=== PATIENT | female | born 1970 | race Caucasian/White ===

== ENCOUNTER 2017-02-03 13:13 | Emergency (ER) | payer BC, OTHER ==
[~2017-02-03] VITALS: Ht 167.6 cm; Wt 165.1 kg
[~2017-02-03 13:13] MED LIST: LISI40TA PO; METH250T
--- NOTE | 2017-02-03 14:24 | ED Abdominal Pain ---
General Chief Complaint: Abdominal/GI Problems Stated Complaint: NAUSEA/BURNING/PAIN IN R SIDE Nursing Triage Note: PT REPORTS THAT AROUND NOON SHE BEGAN HAVING MIDLINE ABD PAIN AND BURNING THAT RADIATED TO HER RUQ. PT ALSO REPORTS NAUSEA, DIAPHORESIS, LIGHTHEADEDNESS. SHE STATES THAT INTERMITTENTLY THE PAIN IS STABBING IN NATURE. SHE DENIES ANY URINARY SYMPTOMS. Sepsis Screen: No Definite Risk Source of Information: Patient Exam Limitations: No Limitations History of Present Illness Time Seen By Provider: 14:24 Initial Comments 46 YO FEMALE PATIENT PRESENTS TO THE ED WITH C/O MID ABDOMINAL PAIN THAT RADIATED FROM HER LEFT MID ABDOMEN TO HER RT MID ABDOMEN/FLANK WHILE TRYING TO MOVE A LARGE AREA RUG. PATIENT REPORTS FEELING "SOMETHING RELEASE AND HAD A SUDDEN BURNING, SHOOTING PAIN RADIATE ACROSS THE ABDOMEN. INITIALLY HAD NAUSEA AND BECAME DIAPHORETIC. STATES SHE BECAME VERY ANXIOUS AND STARTED TO FEEL LIGHTHEADED. NOW HAS INTERMITTENT STABBING PAINS. Location Injury Occurred: HOME Timing/Duration: 1-3 Hours, Intermittent Severity/Quality: Burning, Stabbing Location: Other (LEFT MID ABDOMEN.) Radiation: Other (RT MID ABDOMEN/RT FLANK) Activities at Onset: Other Modifying Factors: Worsens With Movement, Worsens With Palpation Allergies and Home Medications Allergies Coded Allergies: No Known Drug Allergies (Unverified , 10/25/09) Home Medications Lisinopril 40 Mg Tablet, 40 MG PO DAILY, (Reported) Ondansetron 8 Mg Tab.rapdis, 8 MG PO Q6H PRN for NAUSEA, #10 Ref 0 Prescribed by: CONCETTA RUIZ on 02/03/17 1525 Review of Systems Constitutional: No chills, diaphoresis, dizziness, No fever, No malaise EENTM: No Symptoms Reported Respiratory: Denies Cough, Denies Shortness of Air Cardiovascular: Denies Chest Pain, Denies Irregular Heart Rate, Lightheadedness , Denies Palpitations, Denies Syncope Gastrointestinal: See HPI, Denies Abdomen Distended, Abdominal Pain, Denies Blood Streaked Stools, Denies Constipated, Denies Diarrhea, Nausea, Denies Rectal Bleeding, Denies Vomiting Genitourinary: Denies Burning, Denies Discharge, Denies Frequency, Flank Pain ( RT), Denies Hematuria, Denies Pain Musculoskeletal: no symptoms reported Skin: no symptoms reported Psychiatric/Neurological: No Symptoms Reported All Other Systems Reviewed Negative Unless Noted: Yes (Negative excepted noted.) Past Crgixcm-Tvozxu-Ybezbj Hx Patient Social History Alcohol Use: Occasionally Uses Recreational Drug Use: No Smoking Status: Former Smoker 2nd Hand Smoke Exposure: No Recent Foreign Travel: No Contact w/Someone Who Travel: No Recent Infectious Disease Expo: No Recent Hopitalizations: No Surgeries HX Surgeries: Yes (BILAT CARPAL TUNNEL) Surgeries: Section, Gallbladder Respiratory Hx Respiratory Disorders: No Cardiovascular Hx Cardiac Disorders: Yes Neurological Hx Neurological Disorders: No Reproductive System Hx Reproductive Disorders: No Sexually Transmitted Disease: No Genitourinary Hx Genitourinary Disorders: No Gastrointestinal Hx Gastrointestinal Disorders: No Musculoskeletal Hx Musculoskeletal Disorders: No Endocrine Hx Endocrine Disorders: No HEENT HX ENT Disorders: Yes (TMJ) Psychosocial Hx Psychiatric Problems: No Blood Transfusions Hx Blood Disorders: No Reviewed Nursing Assessment Reviewed/Agree w Nursing PMH: Yes Family Medical History Significant Family History: No Pertinent Family Hx Physical Exam Vital Signs VS - Last 72 Hours, by Label 02/03/17 02/03/17 13:55 15:45 Temp 98.9 98.9 Pulse 78 78 Resp 18 18 B/P (MAP) 160/81 Pulse Ox 98 98 O2 Delivery Room Air Capillary Refill : Less Than 3 Seconds General Appearance: WD/WN, no apparent distress, obese Respiratory: chest non-tender, lungs clear, normal breath sounds, no respiratory distress Cardiovascular: normal peripheral pulses, regular rate, rhythm, no murmur Gastrointestinal: normal bowel sounds, soft, no organomegaly, No distended, No guarding, No rebound, tenderness (TTP WITH LIGHT PALPATION ALONG THE RT MIDABDOMEN, LEFT MIDABDOMEN, AND RT FLANK. PAIN IMPROVED WITH DEEP PALPATION.) , No hernia, No mass Extremities: no pedal edema, normal capillary refill Back: normal inspection, no CVA tenderness, no vertebral tenderness Neurologic/Psychiatric: alert, normal mood/affect, oriented x 3 Skin: normal color, warm/dry Progress/Results/Core Measures Results/Orders Lab Results Laboratory Tests Test 02/03/17 14:31 Range/Units White Blood Count 11.6 H 4.3-11.0 10^3/uL Red Blood Count 4.54 4.35-5.85 10^6/uL Hemoglobin 13.0 11.5-16.0 G/DL Hematocrit 39 35-52 % Mean Corpuscular Volume 85 80-99 FL Mean Corpuscular Hemoglobin 29 25-34 PG Mean Corpuscular Hemoglobin Concent 34 32-36 G/DL Red Cell Distribution Width 12.9 10.0-14.5 % Platelet Count 306 130-400 10^3/uL Mean Platelet Volume 9.3 7.4-10.4 FL Neutrophils (%) (Auto) 75 42-75 % Lymphocytes (%) (Auto) 18 12-44 % Monocytes (%) (Auto) 7 0-12 % Eosinophils (%) (Auto) 1 0-10 % Basophils (%) (Auto) 0 0-10 % Neutrophils # (Auto) 8.7 H 1.8-7.8 X 10^3 Lymphocytes # (Auto) 2.1 1.0-4.0 X 10^3 Monocytes # (Auto) 0.8 0.0-1.0 X 10^3 Eosinophils # (Auto) 0.1 0.0-0.3 10^3/uL Basophils # (Auto) 0.0 0.0-0.1 10^3/uL Urine Color YELLOW Urine Clarity CLEAR Urine pH 5 5-9 Urine Specific [place] 1.030 H 1.016-1.022 Urine Protein NEGATIVE NEGATIVE Urine Glucose (UA) NEGATIVE NEGATIVE Urine Ketones NEGATIVE NEGATIVE Urine Nitrite NEGATIVE NEGATIVE Urine Bilirubin NEGATIVE NEGATIVE Urine Urobilinogen NORMAL NORMAL MG/DL Urine Leukocyte Esterase NEGATIVE NEGATIVE Urine RBC (Auto) NEGATIVE NEGATIVE Urine RBC RARE /HPF Urine WBC 0-2 /HPF Urine Squamous Epithelial Cells 10-25 H /HPF Urine Crystals NONE /LPF Urine Bacteria FEW H /HPF Urine Casts NONE /LPF Urine Mucus SMALL H /LPF Urine Culture Indicated NO Sodium Level 136 135-145 MMOL/L Potassium Level 4.2 3.6-5.0 MMOL/L Chloride Level 101 98-107 MMOL/L Carbon Dioxide Level 26 21-32 MMOL/L Anion Gap 9 5-14 MMOL/L Blood Urea Nitrogen 11 7-18 MG/DL Creatinine 0.76 0.60-1.30 MG/DL Estimat Glomerular Filtration Rate > 60 BUN/Creatinine Ratio 14 Glucose Level 92 70-105 MG/DL Calcium Level 9.4 8.5-10.1 MG/DL Total Bilirubin 0.4 0.1-1.0 MG/DL Aspartate Amino Transf (AST/SGOT) 17 5-34 U/L Alanine Aminotransferase (ALT/SGPT) 21 0-55 U/L Alkaline Phosphatase 90 40-136 U/L Total Protein 7.5 6.4-8.2 G/DL Albumin 3.8 3.2-4.5 G/DL Lipase 20 8-78 U/L Urine Opiates Screen NEGATIVE NEGATIVE Urine Oxycodone Screen NEGATIVE NEGATIVE Urine Methadone Screen NEGATIVE NEGATIVE Urine Propoxyphene Screen NEGATIVE NEGATIVE Urine Barbiturates Screen NEGATIVE NEGATIVE Ur Tricyclic Antidepressants Screen NEGATIVE NEGATIVE Urine Phencyclidine Screen NEGATIVE NEGATIVE Urine Amphetamines Screen NEGATIVE NEGATIVE Urine Methamphetamines Screen NEGATIVE NEGATIVE Urine Benzodiazepines Screen NEGATIVE NEGATIVE Urine Cocaine Screen NEGATIVE NEGATIVE Urine Cannabinoids Screen NEGATIVE NEGATIVE My Orders Orders - CONCETTA RUIZ Ua Culture If Indicated (02/03/17 14:04) Cbc With Automated Diff (02/03/17 14:22) Comprehensive Metabolic Panel (02/03/17 14:22) Drug Screen Stat (Urine) (02/03/17 14:22) Lipase (02/03/17 14:22) Saline Lock/Iv-Start (02/03/17 14:22) Ns Iv 1000 Ml (Sodium Chloride 0.9%) (02/03/17 14:50) Vital Signs/I&O Vital Sign - Last 12Hours 02/03/17 02/03/17 13:55 15:45 Temp 98.9 98.9 Pulse 78 78 Resp 18 18 B/P (MAP) 160/81 Pulse Ox 98 98 O2 Delivery Room Air Blood Pressure Mean: 107 Departure Communication Progress Notes LABORATORY FINDINGS WERE DISCUSSED WITH THE PATIENT. PATIENT REPORTS SYMPTOMS ARE COMPLETELY RESOLVED. PLAN FOR DSCH TO HOME. Impression Impression: Primary Impression: Abdominal wall pain Additional Impression: Nausea alone Disposition: 01 HOME, SELF-CARE Condition: Improved Departure-Patient Inst. Decision time for Depature: 15:24 Referrals: NO,LOCAL PHYSICIAN (PCP/Family) Primary Care Physician Patient Instructions: Abdominal Muscle Strain (DC), Acute Abdomen (Belly Pain) , Adult (DC) Add. Discharge Instructions: All discharge instructions reviewed with patient and/or family. Voiced understanding. Medications as instructed. Tylenol extra strength [id number] as directed for pain. Ibuprofen 800 mg by mouth every 8 hours as needed for pain. Ice pack or heating pads as needed for pain. No heavy lifting, pushing, pulling 7 days. Follow-up with the family practitioner for recheck as an outpatient. Call for appointment time tomorrow morning. Return to the emergency department for worsened pain, vomiting, fever, shortness of air, rectal bleeding, black stools, vomiting blood, diarrhea, inability to urinate, or any other concerns. Scripts Ondansetron (Ondansetron Odt) 8 Mg Tab.rapdis 8 MG PO Q6H Y for NAUSEA, #10 TAB 0 Refills Prov: CONCETTA RUIZ 02/03/17 CONCETTA RUIZ Feb 03, 2017 14:24
[2017-02-03 14:41] LABS: BASOPHILS % (AUTO) 0 % (0-10); EOSINOPHILS # (AUTO) 0.1 10^3/uL (0.0-0.3); EOSINOPHILS % (AUTO) 1 % (0-10); LYMPHOCYTES # (AUTO) 2.1 X 10^3 (1.0-4.0); LYMPHOCYTES % (AUTO) 18 % (12-44); MEAN CORPUSCULAR HEMOGLOBIN 29 PG (25-34); MEAN CORPUSCULAR HGB CONC 34 G/DL (32-36); MEAN CORPUSCULAR VOLUME 85 FL (80-99); MEAN PLATELET VOLUME 9.3 FL (7.4-10.4); MONOCYTES # (AUTO) 0.8 X 10^3 (0.0-1.0); MONOCYTES % (AUTO) 7 % (0-12); NEUTROPHILS # (AUTO) 8.7 X 10^3 (1.8-7.8); NEUTROPHILS % (AUTO) 75 % (42-75); PLATELET COUNT 306 10^3/uL (130-400); RED BLOOD COUNT 4.54 10^6/uL (4.35-5.85); RED CELL DISTRIBUTION WIDTH 12.9 % (10.0-14.5); WHITE BLOOD COUNT 11.6 10^3/uL (4.3-11.0)
[2017-02-03 14:44] LABS: BILIRUBIN,URINE NEGATIVE (NEGATIVE); KETONES,URINE NEGATIVE (NEGATIVE); LEUKOCYTE ESTERASE ,URINE NEGATIVE (NEGATIVE); NITRITE,URINE NEGATIVE (NEGATIVE); PH,URINE 5 (5-9); PROTEIN,URINE NEGATIVE (NEGATIVE); UROBILINOGEN,URINE NORMAL (NORMAL)
[2017-02-03] MEDS ORDERED: NS IV 1000 ML 1,000 ML IV ONE (14:50)
[2017-02-03 14:58] LABS: ALANINE AMINOTRANSFERASE 21 U/L (0-55); ALBUMIN 3.8 G/DL (3.2-4.5); ANION GAP 9 MMOL/L (5-14); ASPARTATE AMINO TRANSFERASE 17 U/L (5-34); BILIRUBIN,TOTAL 0.4 MG/DL (0.1-1.0); BLOOD UREA NITROGEN 11 MG/DL (7-18); BUN/CREATININE RATIO 14; CALCIUM 9.4 MG/DL (8.5-10.1); CARBON DIOXIDE 26 MMOL/L (21-32); CHLORIDE 101 MMOL/L (98-107); CREATININE SERUM 0.76 MG/DL (0.60-1.30); GFR ESTIMATED > 60; GLUCOSE 92 MG/DL (70-105); LIPASE 20 U/L (8-78); POTASSIUM 4.2 MMOL/L (3.6-5.0); SODIUM 136 MMOL/L (135-145); TOTAL PROTEIN 7.5 G/DL (6.4-8.2)
[2017-02-03 15:02] LABS: WBC,URINE 0-2 /HPF
[2017-02-03] MEDS ORDERED: ONDA8TAB13 PO (15:25)
[2017-02-03 15:45] VITALS: BP 160/81
--- OUTSIDE RECORDS SUMMARY | 2017-02-26 12:13 | XMS REPORT ---
Author Author LARRY GRECO [facility] eClinicalWorks Address Unknown Phone Unavailable Care Team Providers Care [employer] Biometrics Professor Name Role Phone LARRY GRECO CP Unavailable Allergies, Adverse Reactions, Alerts Substance Reaction Event Type N.K.D.A. Info Not Available Non Drug Allergy Problems Problem Type Condition Code Onset Dates Condition Status Problem Unspecified conjunctivitis 372.30 Active Problem Unspecified fasciitis 729.4 Active Problem Abdominal pain, right lower quadrant 789.03 Active Problem Abdominal pain, other specified site 789.09 Active Problem Dysuria 788.1 Active Problem Lipoma of other skin and subcutaneous tissue 214.1 Active Problem Obesity, unspecified 278.00 Active Problem Pain in joint, lower leg 719.46 Active Problem Hematuria, unspecified 599.70 Active Problem Unspecified symptom associated with female genital organs 625.9 Active Assessment Dental examination Z01.20 Active Problem DTAP TEST V06.1 Active Problem MMR DX V06.4 Active Problem STATE HEP A (ADULT) DX V05.3 Active Problem VARICELLA DX V05.4 Active Problem Need for prophylactic vaccination and inoculation, Influenza V04.81 Active Problem Pain in joint, ankle and foot 719.47 Active Medications Medication Code System Code Instructions Start Date End Date Status Dosage Lisinopril [facility] [address]-00 not defined Naprosyn [facility] [address]-15 500 mg Dec 24, 2011 take 1 tablet (500 mg) by oral route 2 times per day with food Procedures Procedure Coding System Code Date AMALGAM-TWO SURFACES PRIMARY/PERM CPT-4 D2150 Aug 08, 2015 AMALGAM-TWO SURFACES PRIMARY/PERM CPT-4 D2150 Aug 08, 2015 Vital Signs Date/Time: Aug 08, 2015 Blood Pressure Diastolic 88 mmHg Blood Pressure Systolic 133 mmHg Results No Known Results Summary Purpose eClinicalWorks Submission
--- OUTSIDE RECORDS SUMMARY | 2017-02-26 12:13 | XMS REPORT ---
Author Author LINNETTE DOBBS [facility] Address Unknown Care Team Providers Care Flight Controls Engineer Name Role Phone LINNETTE DOBBS Unavailable PROBLEMS Type Condition ICD9-CM Code [id number] Code Onset Dates Condition Status SNOMED Code Problem Unspecified fasciitis 729.4 Active 05968049 Problem Obesity, unspecified 278.00 Active 755055324 Problem Pain in joint, lower leg 719.46 Active 070373330 Problem Encounter for dental examination Z01.20 Active 345010772 Problem Lipoma of other skin and subcutaneous tissue 214.1 Active 814364758 Problem Hematuria, unspecified 599.70 Active 80105055 Problem Unspecified symptom associated with female genital organs 625.9 Active 021613343 Problem Abdominal pain, other specified site 789.09 Active 80432339 Problem Dysuria 788.1 Active 69904265 Problem STATE HEP A (ADULT) DX V05.3 Active 580461600 Problem Need for prophylactic vaccination and inoculation, Influenza V04.81 Active 798430122 Assessment Dental examination Z01.20 25 Jun, 2016 Active 46557128 Problem VARICELLA DX V05.4 Active Problem Pain in joint, ankle and foot 719.47 Active 974744918 Problem DTAP TEST V06.1 Active Problem Unspecified conjunctivitis 372.30 Active 0827059 Problem MMR DX V06.4 Active Problem Abdominal pain, right lower quadrant 789.03 Active 151300555 ALLERGIES No Known Allergies SOCIAL HISTORY No smoking Hx information available PLAN OF CARE VITAL SIGNS MEDICATIONS No Known Medications RESULTS No Results PROCEDURES Procedure Date Ordered Related Diagnosis Body Site Billing Notes on claim Jun 28, 2016 IMMUNIZATIONS No Known Immunizations
--- OUTSIDE RECORDS SUMMARY | 2017-02-26 12:13 | XMS REPORT ---
Author Author SKIP BUSTAMANTE Organization eClinicalWorks Address Unknown Phone Unavailable Care Team Providers Care Php Software Engineer Name Role Phone SKIP BUSTAMANTE CP Unavailable Allergies No Known Allergies Problems Problem Type Condition ICD-9 Code Onset Dates Condition Status Problem Unspecified [...] genital organs 625.9 Active Assessment Dental examination V72.2 Active Problem DTAP TEST V06.1 Active Problem MMR DX V06.4 Active Problem STATE HEP A (ADULT) DX V05.3 Active Problem VARICELLA DX V05.4 Active Problem Need for prophylactic vaccination and inoculation, Influenza V04.81 Active Problem Pain in joint, ankle and foot 719.47 Active Medications No Known Medications Procedures Procedure Coding System Code Date INTRAORL-PERIAPICAL EA ADD FILM CPT-4 D0230 June 02, 2015 INTRAORL-PERIAPICAL EA ADD FILM CPT-4 D0230 June 02, 2015 INTRAORL-PERIAPICAL 1 FILM 83406 CPT-4 D0220 June 02, 2015 Periodontal maint procedures CPT-4 D4910 June 02, 2015 BITEWINGS - FOUR FILMS CPT-4 D0274 June 02, 2015 Results No Known Results Summary Purpose eClinicalWorks Submission
--- OUTSIDE RECORDS SUMMARY | 2017-02-26 12:13 | XMS REPORT ---
Author Author SKIP BUSTAMANTE [employer] Address Unknown Phone Unavailable Care Team Providers Care Reel Operator Name Role Phone SKIP BUSTAMANTE Unavailable Allergies, Adverse Reactions, Alerts Substance Reaction Event Type N.K.D.A. Info Not Available Non Drug Allergy Problems Problem Type Condition Code Onset Dates Condition Status Problem Abdominal pain, right lower quadrant 789.03 Active Problem Pain in joint, lower leg 719.46 Active Problem Unspecified fasciitis 729.4 Active Problem Lipoma of other skin and subcutaneous tissue 214.1 Active Problem Abdominal pain, other specified site 789.09 Active Problem Encounter for dental examination Z01.20 Active Problem Unspecified symptom associated with female genital organs 625.9 Active Problem Obesity, unspecified 278.00 Active Problem Dysuria 788.1 Active Problem Hematuria, unspecified 599.70 Active Assessment Encounter for dental examination Z01.20 Active Problem STATE HEP A (ADULT) DX V05.3 Active Problem MMR DX V06.4 Active Problem VARICELLA DX V05.4 Active Problem Need for prophylactic vaccination and inoculation, Influenza V04.81 Active Problem Pain in joint, ankle and foot 719.47 Active Problem DTAP TEST V06.1 Active Problem Unspecified conjunctivitis 372.30 Active Medications Medication Code System Code Instructions Start Date End Date Status Dosage Lisinopril [facility] [address]-77 20 MG Orally Once a day 1 tablet Aspirin [facility] [address]-63 81 MG Orally Once a day 1 tablet Procedures Procedure Coding System Code Date INTRAORL-PERIAPICAL 1 FILM 31208 CPT-4 D0220 May 22, 2016 INTRAORL-PERIAPICAL EA ADD FILM CPT-4 D0230 May 22, 2016 PERIODIC ORAL EXAMINATION CPT-4 D0120 May 22, 2016 Watch Tooth CPT-4 C0029 May 22, 2016 BITEWINGS - FOUR FILMS CPT-4 D0274 May 22, 2016 INTRAORL-PERIAPICAL EA ADD FILM CPT-4 D0230 May 22, 2016 TOPICAL FLUORIDE VARNISH CPT-4 D1206 May 22, 2016 Periodontal maint procedures CPT-4 D4910 May 22, 2016 Vital Signs Date/Time: May 22, 2016 Blood Pressure Diastolic 78 mmHg Blood Pressure Systolic 130 mmHg Results No Known Results Summary Purpose eClinicalWorks Submission
--- OUTSIDE RECORDS SUMMARY | 2017-02-26 12:13 | XMS REPORT ---
Author Author LARRY GRECO Organization eClinicalWorks Address Unknown Phone Unavailable Care Team Providers Care Irish Moss Gatherer Name Role Phone LARRY GRECO CP Unavailable Allergies No Known Allergies Problems [...] Medications Procedures Procedure Coding System Code Date Billing Notes on claim CPT-4 EC109 March 23, 2015 Results No Known Results Summary Purpose eClinicalWorks Submission
--- OUTSIDE RECORDS SUMMARY | 2017-02-26 12:13 | XMS REPORT ---
Author Author CAPO LOVE Organization eClinicalWorks Address Unknown Phone Unavailable Care Team Providers Care Commercial Illustrator Name Role Phone CAPO LOVE CP Unavailable Allergies No Known Allergies Problems [...] Medications Procedures Procedure Coding System Code Date AMALGAM-ONE SURFACE PRIMARY/PERM CPT-4 D2140 Jun 10, 2015 AMALGAM-TWO SURFACES PRIMARY/PERM CPT-4 D2150 Jun 10, 2015 AMALGAM-ONE SURFACE PRIMARY/PERM CPT-4 D2140 Jun 10, 2015 Results No Known Results Summary Purpose eClinicalWorks Submission
--- OUTSIDE RECORDS SUMMARY | 2017-02-26 12:13 | XMS REPORT | Continuity of Care Document ---
Author Author [facility] Address Unknown Phone Unavailable Allergies Medications Problems Date Dx Coded Attending Type Code Diagnosis Diagnosed By 03/14/2011 789.01 ABDOMINAL PAIN RIGHT UPPER QUADRANT 03/14/2011 789.01 ABDOMINAL PAIN RIGHT UPPER QUADRANT 03/14/2011 789.01 ABDOMINAL PAIN RIGHT UPPER QUADRANT 03/14/2011 MAURA JEWELL DO 789.01 ABDOMINAL PAIN RIGHT UPPER QUADRANT 06/04/2011 787.02 NAUSEA ALONE 06/04/2011 787.02 NAUSEA ALONE 06/04/2011 787.02 NAUSEA ALONE 06/04/2011 MAURA JEWELL DO 787.02 NAUSEA ALONE 09/10/2011 530.81 GERD 09/10/2011 536.8 DYSPEPSIA 09/10/2011 575.8 OTHER SPECIFIED DISORDERS OF GALLBLADDER 09/10/2011 530.81 GERD 09/10/2011 536.8 DYSPEPSIA 09/10/2011 575.8 OTHER SPECIFIED DISORDERS OF GALLBLADDER 09/10/2011 530.81 GERD 09/10/2011 536.8 DYSPEPSIA 09/10/2011 575.8 OTHER SPECIFIED DISORDERS OF GALLBLADDER 09/10/2011 MAURA JEWELL DO 530.81 GERD 09/10/2011 MAURA JEWELL DO 536.8 DYSPEPSIA 09/10/2011 MAURA JEWELL DO 575.8 OTHER SPECIFIED DISORDERS OF GALLBLADDER 10/15/2011 V45.89 OTHER POSTSURGICAL STATUS 10/15/2011 V45.89 OTHER POSTSURGICAL STATUS 10/15/2011 V45.89 OTHER POSTSURGICAL STATUS 10/15/2011 MAURA JEWELL DO V45.89 OTHER POSTSURGICAL STATUS 12/24/2011 278.00 OBESITY 12/24/2011 719.46 JOINT PAIN, LOCALIZED IN THE KNEE 12/24/2011 278.00 OBESITY 12/24/2011 719.46 JOINT PAIN, LOCALIZED IN THE KNEE 12/24/2011 278.00 OBESITY 12/24/2011 719.46 JOINT PAIN, LOCALIZED IN THE KNEE 12/24/2011 MAURA JEWELL DO 278.00 OBESITY 12/24/2011 MAURA JEWELL DO 719.46 JOINT PAIN, LOCALIZED IN THE KNEE 03/05/2012 599.70 HEMATURIA 03/05/2012 625.9 PELVIC PAIN 03/05/2012 788.1 DYSURIA 03/05/2012 599.70 HEMATURIA 03/05/2012 625.9 PELVIC PAIN 03/05/2012 788.1 DYSURIA 03/05/2012 599.70 HEMATURIA 03/05/2012 625.9 PELVIC PAIN 03/05/2012 788.1 DYSURIA 03/05/2012 MAURA JEWELL DO 599.70 HEMATURIA 03/05/2012 MAURA JEWELL DO 625.9 PELVIC PAIN 03/05/2012 MAURA JEWELL DO 788.1 DYSURIA 03/26/2012 729.4 PLANTAR FASCIITIS 03/26/2012 789.03 ABDOMINAL PAIN RIGHT LOWER QUADRANT 03/26/2012 729.4 PLANTAR FASCIITIS 03/26/2012 789.03 ABDOMINAL PAIN RIGHT LOWER QUADRANT 03/26/2012 729.4 PLANTAR FASCIITIS 03/26/2012 789.03 ABDOMINAL PAIN RIGHT LOWER QUADRANT 03/26/2012 MAURA JEWELL DO 729.4 PLANTAR FASCIITIS 03/26/2012 MAURA JEWELL DO 789.03 ABDOMINAL PAIN RIGHT LOWER QUADRANT 05/05/2012 214.1 LIPOMA OF OTHER SKIN AND SUBCUTANEOUS TISSUE 05/05/2012 789.09 ABDOMINAL PAIN OTHER SPECIFIED SITE 05/05/2012 214.1 LIPOMA OF OTHER SKIN AND SUBCUTANEOUS TISSUE 05/05/2012 789.09 ABDOMINAL PAIN OTHER SPECIFIED SITE 05/05/2012 214.1 LIPOMA OF OTHER SKIN AND SUBCUTANEOUS TISSUE 05/05/2012 789.09 ABDOMINAL PAIN OTHER SPECIFIED SITE 05/05/2012 MAURA JEWELL DO 214.1 LIPOMA OF OTHER SKIN AND SUBCUTANEOUS TISSUE 05/05/2012 MAURA JEWELL DO 789.09 ABDOMINAL PAIN OTHER SPECIFIED SITE 03/02/2013 719.47 PAIN IN JOINT INVOLVING ANKLE AND FOOT 03/02/2013 719.47 PAIN IN JOINT INVOLVING ANKLE AND FOOT 03/02/2013 719.47 PAIN IN JOINT INVOLVING ANKLE AND FOOT 03/02/2013 MAURA JEWELL DO 719.47 PAIN IN JOINT INVOLVING ANKLE AND FOOT 04/29/2013 372.30 CONJUNCTIVITIS UNSPECIFIED 04/29/2013 372.30 CONJUNCTIVITIS UNSPECIFIED 04/29/2013 MAURA JEWELL DO 372.30 CONJUNCTIVITIS UNSPECIFIED 12/02/2013 MAURA JEWELL DO V04.81 FLU SHOT 12/02/2013 MAURA JEWELL DO V05.3 HEP B (ADULT) DX 12/02/2013 MAURA JEWELL DO V05.4 VARICELLA DX 12/02/2013 MAURA JEWELL DO V06.1 TDAP DX 12/02/2013 MAURA JEWELL DO V06.4 MMR DX Procedures Code Description Performed By Performed On PODIATRY JASON ALDRIDGE 03/02/2013 Results Encounters ACCT No. Visit Date/Time Discharge Status Pt. Type Provider Facility Loc./Unit Complaint [id number] 12/02/2013 15:12:00 12/02/2013 23: 59:59 CLS Outpatient MAURA JEWELL DO [id number] 06/26/2013 08:01:00 Document Registration [id number] 04/29/2013 12:47:00 Document Registration [id number] 03/02/2013 16:01:00 Document Registration
== END 2017-02-03 15:45 | disposition home or self-care (01) ==
LOC: EDUNIT# 13:13 → ER 13:14
DX: S39.001A Unspecified injury of muscle, fascia and tendon of abdomen, initial encounter (principal); R11.0 Nausea; X50.9XXA Other and unspecified overexertion or strenuous movements or postures, initial encounter; Y92.009 Unspecified place in unspecified non-institutional (private) residence as the place of occurrence of the external cause; Y99.8 Other external cause status
CPT/HCPCS: 36415; 80053; 80306; 81000; 83690; 85025

== ENCOUNTER → 2017-07-22 | Outpatient (CLI) | payer BC ==
[~2017-07-22] MED LIST changes: +ONDA8TAB13 PO
--- NOTE | 2017-07-22 12:15 | Diagnostic Imaging Report ---
EXAMINATION: Three views of the left foot. INDICATION: Pain in the fourth toe and the metatarsal region after injury. FINDINGS: There is a prominent calcaneal spur seen. No fracture or dislocation is noted. No radiopaque foreign body. IMPRESSION: Prominent calcaneal spur. Dictated by: Dictated on workstation # [id number]
== END ==
LOC: RAD 11:01
PROVIDERS: ATTEND Nurse Practitioner Family
DX: M77.32 Calcaneal spur, left foot (principal)
CPT/HCPCS: 73630

== ENCOUNTER → 2022-03-12 | Outpatient (CLI) | payer BC | LOC: LAB 10:48 | PROVIDERS: ATTEND Orthopaedic Surgery Orthopaedic Surgery of the Spine | DX: M54.6 Pain in thoracic spine (principal); G89.29 Other chronic pain | CPT/HCPCS: 36415; 86038; 86039; 86141; 86431; 86618; 86666; 86668; 86757; 86812 ==

== ENCOUNTER → 2022-03-27 | Outpatient (CLI) | payer BC | LOC: RAD 08:45 | PROVIDERS: ATTEND Orthopaedic Surgery Orthopaedic Surgery of the Spine | DX: M54.12 Radiculopathy, cervical region (principal); Z53.9 Procedure and treatment not carried out, unspecified reason ==

== ENCOUNTER → 2022-05-04 | Outpatient (CLI) | payer BC ==
--- NOTE | 2022-05-04 16:24 | Diagnostic Imaging Report ---
INDICATION: Bilateral hand pain TECHNIQUE: Three views of the bilateral hand. CORRELATION STUDY: None FINDINGS: There is normal alignment and appearance of the osseous structures of the hand. The joint spaces are fairly well maintained. No periarticular erosive changes or osteophyte formation. There is perhaps very mild degenerative changes at the first carpal metacarpal articulation left greater than right. There is no acute fracture. Soft tissues are unremarkable. IMPRESSION: 1. Unremarkable examination bilateral hands. Dictated by: Dictated on workstation # [id number]
== END ==
LOC: RAD 15:35
PROVIDERS: ATTEND Family Medicine
DX: M79.642 Pain in left hand (principal); M79.641 Pain in right hand

== ENCOUNTER 2022-07-04 05:45 | Outpatient (CLI) | payer BC ==
[~2022-07-04] VITALS: Ht 167.6 cm; Wt 135.2 kg
[2022-07-05] MEDS ORDERED: BACL10TA PO (15:40)
[2022-07-05] MEDS ORDERED: LISI20TA26 PO (15:40)
[2022-07-05] MEDS ORDERED: TRM50T PO (15:40)
== END 2022-07-05 15:44 | disposition home or self-care (01) ==
LOC: PREOP 05:45
PROVIDERS: ATTEND Surgery
DX: Z01.818 Encounter for other preprocedural examination (principal)

== ENCOUNTER 2022-07-16 09:10 | Day surgery (SDC) | payer BC ==
[~2022-07-16] VITALS: Ht 167.6 cm; Wt 135.2 kg
[~2022-07-16 09:10] MED LIST changes: +BACL10TA PO; +LISI20TA26 PO; +TRM50T PO
[2022-07-16] MEDS ORDERED: LACTATED RINGERS 1,000 ML IV STA (09:24)
[2022-07-16] MEDS ORDERED: LACTATED RINGERS 1,000 ML IV ONE (09:39)
--- NOTE | 2022-07-16 10:59 | Progress Note-Pre Operative ---
Pre-Operative Progress Note Date of Available H&P: Jun 19, 2022 Date H&P Reviewed: Jul 16, 2022 Time H&P Reviewed: 10:38 History & Physical: H&P Reviewed, Patient Examed, No changes noted Pre-Operative Diagnosis: Screening LANDEN YOUNG DO Jul 16, 2022 10:59
[2022-07-16] MEDS ORDERED: MIDAZOLAM 2 MG/2 ML (VERSED) VIAL ONE (11:44)
[2022-07-16] MEDS ORDERED: PROPOFOL INJECTION 50 ML IV ONE (11:44)
[2022-07-16 12:15] VITALS: BP 106/58
[2022-07-16 12:20] VITALS: BP 90/53
--- NOTE | 2022-07-16 12:20 | Progress Note-Post Operative ---
Post-Operative Progess Note Surgeon (s)/Clinical Nursing Director (s) Surgeon LANDEN YOUNG DO Clinical Nursing Director: SHAWANDA SamuelII Pre-Operative Diagnosis Screening Post-Operative Diagnosis polyps int hemorrhoids Procedure & Operative Findings Date of Procedure 07/16/22 Procedure Performed/Findings Colonoscopy with hot bx PROCEDURE NOTE: After informed consent was obtained, the patient was brought to the endoscopy suite, placed in bed in left lateral decubitus position. She was administered IV sedation by the MANAGER SPORTS who then monitored her vitals the entire time, heart rate, blood pressure and pulse ox and the scope was inserted, pushed all the way to about 150 cm and pushed into the cecum. On the way in, in the transverse colon saw a small polyp and elected to do a hot biopsy. Once in the cecum I took a picture of appendiceal orifice and right next to it saw another small polyp; which I also removed with hot biopsy. Then slowly withdrew the scope insufflating to look circumferentially at the villalba starting in the cecum and up the ascending colon. In the ascending colon found another polyp and did another hot biopsy. Up to the hepatic flexure, then down the transverse colon down to splenic flexure, into the descending colon, the sigmoid and then into the rectal vault. Retroflexed the scope and took a picture of the internal hemorrhoids. The patient tolerated the procedure. She was recovered in endoscopy suite. Recommended for repeat colonoscopy in 5 years. Anesthesia Type IV sedation by MANAGER SPORTS Estimated Blood Loss Estimated blood loss (mL): scant Specimens/Packing Specimens Removed transverse colon polyp cecal polyp asc colon polyp LANDEN YOUNG DO Jul 16, 2022 12:20
--- NOTE | 2022-07-16 12:27 | Endoscopy Discharge Instruct ---
Endo Procedure/Findings Findings 1.: Polyp 2.: Internal Hemorrhoids Discharge Instructions - Activity: You might feel a little sleepy until tomorrow. This is due to the medicine you received to relax you. Until tomorrow, you should: NOT drive a car, operate machinery or power tools. NOT drink any alcoholic beverages. NOT make any important decisions or sign importortant papers. Do not return to work until tomorrow, unless otherwise instructed. Resume previous activities tomorrow. Diet: Start by taking liquids. If you tolerate liquids, advance to solid food. 1.: Colonscopy in 5 years Notify Physician - If you experience excessive bleeding, unusual abdominal pain, fever, or chest pain, contact your doctor immediately. LANDEN YOUNG DO Jul 16, 2022 12:27
[2022-07-16 12:52] VITALS: BP 90/53
--- NOTE | 2022-07-16 14:10 | Anesthesia-General Post-Op ---
MAC Patient Condition Mental Status/LOC: Same as Preop Cardiovascular: Satisfactory Nausea/Vomiting: Absent Respiratory: Satisfactory Pain: Controlled Complications: Absent Post Op Complications Complications None Follow Up Care/Instructions Patient Instructions None needed. Anesthesiology Discharge Order Discharge Order Patient is doing well, no complaints, stable vital signs, no apparent adverse anesthesia problems. No complications reported per nursing. HE AMADOR CRNA Jul 16, 2022 14:10
== END 2022-07-16 12:52 | disposition home or self-care (01) ==
LOC: ENDO 09:10
PROVIDERS: ATTEND Surgery
DX: Z12.11 Encounter for screening for malignant neoplasm of colon (principal); D12.3 Benign neoplasm of transverse colon; K63.89 Other specified diseases of intestine; K63.5 Polyp of colon; K64.8 Other hemorrhoids; E66.01 Morbid (severe) obesity due to excess calories; Z68.42 Body mass index [BMI] 45.0-49.9, adult
CPT/HCPCS: 84703

== ENCOUNTER → 2022-09-11 | Outpatient (CLI) | payer BC ==
[2022-09-11 10:20] LABS: HEMATOCRIT 43 % (35-52); MEAN CORPUSCULAR HEMOGLOBIN 29 pg (25-34); MEAN CORPUSCULAR HGB CONC 32 g/dL (32-36); MEAN CORPUSCULAR VOLUME 89 fL (80-99); PLATELET COUNT 301 10^3/uL (130-400); WHITE BLOOD COUNT 11.3 10^3/uL (4.3-11.0)
--- NOTE | 2022-09-11 10:34 | Diagnostic Imaging Report ---
EXAMINATION: Chest 2 view HISTORY: Bronchitis COMPARISON: None available. FINDINGS: The lungs are clear without edema or pneumonia. No pleural effusion or pneumothorax. Heart size is normal. IMPRESSION: 1. Clear lungs. Dictated by: Dictated on workstation # [id number]
[2022-09-11 10:52] LABS: ALBUMIN 4.2 GM/DL (3.2-4.5); BILIRUBIN,TOTAL 0.6 MG/DL (0.1-1.0); CALCIUM 9.5 MG/DL (8.5-10.1); CREATININE SERUM 0.82 MG/DL (0.60-1.30); POTASSIUM 3.6 MMOL/L (3.6-5.0); TOTAL PROTEIN 7.8 GM/DL (6.4-8.2)
== END ==
LOC: RAD 09:58
PROVIDERS: ATTEND Registered Nurse Critical Care Medicine
DX: J20.8 Acute bronchitis due to other specified organisms (principal)
CPT/HCPCS: 36415; 71046; 80053; 85027; 86738